=== PATIENT | male | born 1960 | race Caucasian/White ===

== ENCOUNTER 2018-08-21 09:35 | Day surgery (SDC) | payer OTHER ==
[2018-08-21] MEDS ORDERED: LIDOCAINE HCL 1% MPF 30 SOL ONE (10:26)
[2018-08-21] MEDS ORDERED: PROPOFOL 500 MG/50 ML EMU IV ONE (10:26)
[2018-08-21 11:40] VITALS: BP 136/80; PULSE 52; RESP 18; TEMP 97.4; O2SAT 100
== END 2018-08-21 11:52 | disposition home or self-care (01) | DRG 951 ==
LOC: SURG 09:35
PROVIDERS: ATTEND Surgery
DX: Z12.11 Encounter for screening for malignant neoplasm of colon (principal); Z86.010 Personal history of colon polyps; K57.30 Diverticulosis of large intestine without perforation or abscess without bleeding
CPT/HCPCS: J2001; J2704